=== PATIENT | male | born 1995 | race Caucasian/White ===

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

== ENCOUNTER 2019-02-11 01:42 | Emergency (ER) | payer MEDICAID ==
--- NOTE | 2019-02-11 02:01 | ER Document Report ---
ED Medical Screen (RME) - General Chief Complaint: Laceration Stated Complaint: RIGHT HAND LACERATION Time Seen by Provider: 02/11/19 01:58 Primary Care Provider: KRISTINA BUTLER FNP-C [Primary Care Provider] - Follow up as needed Mode of Arrival: Ambulatory Information source: Patient Notes: Patient presents to the emergency department with laceration to lateral right hand. Reports he was made a sandwich dropped knife went to catch it and cut himself. Reports tetanus is up-to-date. No active bleeding. Irregular shaped laceration noted. Patient is moving his fingers without problems. He is right- hand dominant I have greeted and performed a rapid initial assessment of this patient. A comprehensive ED assessment and evaluation of the patient, analysis of test results and completion of the medical decision making process will be conducted by additional ED providers. Dictation of this chart was performed using voice recognition software; therefore, there may be some unintended grammatical errors. TRAVEL OUTSIDE OF THE [place] IN LAST 30 DAYS: No - Related Data Allergies/Adverse Reactions: lorazepam [From Ativan] Allergy (Verified 08/04/16 11:41) Sulfa (Sulfonamide Antibiotics) Allergy (Verified 08/09/13 17:30) Past Medical History Endocrine Medical History: Denies: Hx Diabetes Mellitus Type 1 Renal/ Medical History: Denies: Hx Peritoneal Dialysis Psychiatric Medical History: Reports: Hx Attention Deficit Hyperactivity Disorder, Hx Bipolar Disorder - Immunizations Immunizations up to date: Yes Hx Diphtheria, Pertussis, Tetanus Vaccination: Yes Doctor's Discharge - Discharge Referrals: KRISTINA BUTLER FNP-C [Primary Care Provider] - Follow up as needed
[2019-02-11] MEDS ORDERED: LIDOCAINE 4% TRANSPARENT DRESSING 5 GM KIT TP ONE (04:20)
--- NOTE | 2019-02-11 05:41 | ER Document Report ---
ED Wound - General Chief Complaint: Laceration Stated Complaint: RIGHT HAND LACERATION Time Seen by Provider: 02/11/19 01:58 Primary Care Provider: KRISTINA BUTLER FNP-C [COMMUNITY BASED STAFF] - Follow up as needed Mode of Arrival: Ambulatory Notes: Patient is a 23-year-old male that comes emergency department for chief complaint of laceration to the right hand. He states that he was making a sandwich in the kitchen at 2 AM when he dropped one of the knives, he states that he tried to catch the knife and excellently stabbed himself with the night on the side of the hand near the pinky finger. He is right-handed. He is up-to-date on his tetanus within 5 years. He denies any other injuries. Mother at bedside. TRAVEL OUTSIDE OF THE [place] IN LAST 30 DAYS: No - Related Data Allergies/Adverse Reactions: lorazepam [From Ativan] Allergy (Verified 08/04/16 11:41) Sulfa (Sulfonamide Antibiotics) Allergy (Verified 08/09/13 17:30) Past Medical History - General Information source: Patient - Social History Smoking Status: Never Smoker Frequency of alcohol use: None Drug Abuse: None Lives with: Family Family History: Malignancy. denies: Arthritis, CAD, COPD, CVA, DM, Hyperlipidemia, Hypertension, Thyroid Disfunction Patient has suicidal ideation: No Patient has homicidal ideation: No Endocrine Medical History: Denies: Hx Diabetes Mellitus Type 1 Renal/ Medical History: Denies: Hx Peritoneal Dialysis Psychiatric Medical History: Reports: Hx Attention Deficit Hyperactivity Disorder, Hx Bipolar Disorder - Immunizations Immunizations up to date: Yes Hx Diphtheria, Pertussis, Tetanus Vaccination: Yes Review of Systems - Review of Systems Constitutional: No symptoms reported EENT: No symptoms reported Cardiovascular: No symptoms reported Respiratory: No symptoms reported Gastrointestinal: No symptoms reported Genitourinary: No symptoms reported Male Genitourinary: No symptoms reported Musculoskeletal: See HPI Skin: See HPI Hematologic/Lymphatic: No symptoms reported Neurological/Psychological: No symptoms reported Physical Exam - Vital signs Vitals: Temp Pulse Resp BP Pulse Ox 98.1 F 74 14 120/70 99 02/11/19 02:03 02/11/19 02:03 02/11/19 02:03 02/11/19 02:03 02/11/19 02:03 - Notes Notes: GENERAL: Alert, interacts well. No acute distress. HEAD: Normocephalic, atraumatic. EYES: Pupils equal, round, and reactive to light. Extraocular movements intact. ENT: Oral mucosa moist, tongue midline. Oropharynx unremarkable. Airway patent. LUNGS: Clear to auscultation bilaterally, no wheezes, rales, or rhonchi. No respiratory distress. HEART: Regular rate and rhythm. No murmur ABDOMEN: Soft, non-tender. Non-distended. EXTREMITIES: There is a irregular partial-thickness laceration over the medial aspect of the right hand on the side of the hand adjacent to the fifth MCP. This is a flap laceration, easily explored, clearly no evidence of large vessel, nerve, or tendon injury. Normal strength against resistance in flexion, normal capillary refill and sensation of all fingers. Normal hand and wrist exam otherwise. BACK: no cervical, thoracic, lumbar midline tenderness. No saddle anesthesia, normal distal neurovascular exam. Moves all extremities in full range of motion. NEUROLOGICAL: Alert and oriented x3. Normal speech. Cranial nerves II through XII grossly intact. PSYCH: Normal affect, normal mood. SKIN: Warm, dry, normal turgor. No rashes or lesions noted. Course - Re-evaluation Re-evalutation: Patient is calm, interactive, joking with the mom, they are very comfortable with each other. Based on the area of the wound and the shape of the wound this absolutely appears accidental. Wound cleansed, repaired, because patient is reportedly "dirty" and the wound was reportedly dirty as well patient was placed on Keflex prophylaxis. Discussed follow-up and return precautions. Patient and mother state understanding and agreement. - Vital Signs Vital signs: Temp Pulse Resp BP Pulse Ox 98.1 F 67 16 126/67 H 99 02/11/19 05:49 02/11/19 05:49 02/11/19 05:49 02/11/19 05:49 02/11/19 05:49 Procedures - Laceration/Wound Repair Right hand Wound length (cm): 2.5 Wound's Depth, Shape: Irregular, Flap Laceration pre-procedure: Sterile PPE donned, Sterile drapes applied, Shur-Clens applied Wound explored: Clean, No foreign body removed Wound Repaired With: Sutures Suture Size/Type: 4:0, Nylon Number of Sutures: 6 Layer Closure?: No Post-procedure wound care: Sterile dressing applied Post-procedure NV exam normal: Yes Complications: No Discharge - Discharge Clinical Impression: Laceration of right hand Qualifiers: Encounter type: initial encounter Foreign body presence: without foreign body Qualified Code(s): S61.411A - Laceration without foreign body of right hand, initial encounter Condition: Stable Disposition: HOME, SELF-CARE Additional Instructions: The laceration has been repaired. Sutures need to be removed in about 7 days. This can be done at almost any medical facility. Keep clean, clean with soap and water, you can apply thin film of topical antibiotic to the area. Avoid soaking or scrubbing. Take antibiotic as prescribed to completion. Return for any concerning symptoms including developing pain, swelling, redness, discolored discharge, fever, or any other concerning symptoms. Prescriptions: Cephalexin Monohydrate [Keflex 500 mg Capsule] 500 mg PO TID 5 Days #15 capsule Referrals: KRISTINA BUTLER FNP-C [COMMUNITY BASED STAFF] - Follow up as needed
[2019-02-11 05:50] VITALS: BP 126/67
== END 2019-02-11 05:49 | disposition home or self-care (01) ==
LOC: ER 01:42
PROC: 0HQFXZZ Repair Right Hand Skin, External Approach (ICD-10-PCS; principal; 2019-02-11)
DX: S61.411A Laceration without foreign body of right hand, initial encounter (principal); W26.0XXA Contact with knife, initial encounter
CPT/HCPCS: 12001; J3490; 99282